=== PATIENT | female | born 1965 | race Caucasian/White ===

== ENCOUNTER 2024-09-10 20:13 | Inpatient (IN) | payer OTHER, SELFPAY ==
[2024-09-10] VITALS (8 sets, daily range): BP systolic 123–167; BP diastolic 72–95; BMI 32.0; BMI 31.4
[2024-09-10 12:00] LABS: Hematocrit 38.3 % (37.0-47.0); Hemoglobin 13.6 g/dL (12.0-16.0); Mean Corp Hgb Conc. 35.5 g/dL (33.0-37.0); Mean Corpuscular Volume 81.7 fL (81.0-99.0); Mean Platelet Volume 9.8 fL (7.4-10.4); Platelet Count 272 10^3/uL (130-400); Red Blood Cell Count 4.69 10^6/uL (4.20-5.40); Red Cell Dist. Width 15.5 % (11.5-14.5)
[2024-09-10 12:12] LABS: ALT (SGPT) 13 U/L (0-35); AST (SGOT) 14 U/L (14-36); Albumin 4.4 g/dl (3.5-5.0); Alkaline Phosphatase 115 U/L (38-126); Blood Urea Nitrogen 35 mg/dl (7-17); Calcium 9.7 mg/dl (8.4-10.2); Carbon Dioxide 21 mmol/L (22-30); Chloride 102 mmol/L (98-107); Glucose 205 mg/dl (70-99); Sodium 137 mmol/L (135-145); Total Bilirubin 0.8 mg/dl (0.2-1.3); Total Protein 7.4 g/dl (6.3-8.2); eGFR 51.82
[2024-09-10 12:15] LABS: COVID-19 Antigen Negative (Negative)
[2024-09-10 12:16] LABS: Troponin I < 0.012 ng/ml
[2024-09-10 12:42] LABS: % Basophils 0.3 % (0-2); % Immature Granulocytes 1.4 % (0-0.5); % Lymphocytes 3.9 % (20.5-51.1); % Monocytes 3.6 % (1.7-9.3); % Neutrophils 90.8 % (42.2-75.2); Absolute Basophils 0.1 10^3/uL (0-0.2); Absolute Immature Granulocytes 0.3 10^3/uL (0-0.05); Absolute Lymphocytes 0.9 10^3/uL (1.2-3.4); Absolute Monocytes 0.9 10^3/uL (0.1-0.6); Absolute Neutrophils 21.8 10^3/uL (1.4-6.5); Nucleated Red Blood Cells % 0 %
--- NOTE | 2024-09-10 15:33 | ED.GENMED ---
History of Present Illness
<Brennan Mondragon PA-C - Last Filed: 09/10/24 18:14>
General
Chief Complaint: Cough
Source: patient
Time Seen by Provider: 09/10/24 15:12
History of Present Illness
History of Present Illness:
59-year-old female with past medical history of anxiety and depression presenting to the emergency department for evaluation of cough, body aches, chest discomfort and generally feeling unwell over the last 3 days, today symptoms worse prompting her
to come to the ER for further evaluation. Patient states she has not been a eat or drink very much due to her generalized fatigue and weakness during this time. She also notes that a coworker was sick with similar symptoms the day prior to
patient's symptoms starting. Patient states she does believe she has had some blood-tinged sputum during this time. She does note a history of cigarette use noting about 5 to 6 cigarettes/day as well as recent travel to [place] in
[place] with her sister at the end of August. Patient is unaware of any fevers. No other concerns at this time.
Past History
<Brennan Mondragon PA-C - Last Filed: 09/10/24 18:14>
Past History
ED Past Medical History: Psychiatric
ED Past Surgical History: None
Social History
Tobacco: Smoker
Alcohol: None
Drug: None
Personal: Single
Living: alone
Employment: Employed
Review of Systems
<Brennan Mondragon PA-C - Last Filed: 09/10/24 18:14>
Review of Systems
All Other Systems: ROS reviewed and negative except as documented in HPI and ROS
Phy Exam
<Brennan Mondragon PA-C - Last Filed: 09/10/24 18:14>
Physical Exam
Physical Exam:
GENERAL: Alert , in no apparent distress, ill-appearing but nontoxic
HEAD: Normocephalic atraumatic
EYE: pupils equal and reactive
NECK: Supple
ENT: o/p clr, mmm.
CARDIAC: Tachycardic rate and rhythm, no murmur
LUNGS: Diminished lung sounds at the left posterior base, no acute respiratory distress, no wheezes/rales/rhonchi, pulse ox 92% on room air, placed on 2 L nasal cannula with good response to 95 to 97%
ABDOMEN: Soft, without focal tenderness, no r/g, no cvat
NEUROLOGICAL: Alert and oriented
SKIN: Warm and dry, skin intact.
MUSCULOSKELETAL: No edema, well perfused.
PSYCH: Normal and appropriate interaction.
Scores
<Brennan Mondragon PA-C - Last Filed: 09/10/24 18:14>
Heart Failure Risk
Heart Failure Risk Score: Not Applicable
Heart Score for Chest Pain Patients
STEMI patient?: No
History: Slightly or Non-Suspicious
ECG: Normal
Age: >45 - <65 years
Risk Factors: 1 or 2 Risk Factors
Troponin: </= Normal Limit
Heart Score for Chest Pain Patients: 2
Heart Score Risk: 2.5% MACE over next 6 weeks
Withdrawal Assessment of Alcohol
Withdrawal Assessment Completed?: Not applicable
<Conrad Willson MD - Last Filed: 09/10/24 15:50>
Heart Score for Chest Pain Patients
Heart Score for Chest Pain Patients: 2
Heart Score Risk: 2.5% MACE over next 6 weeks
Course
<Brennan Mondragon PA-C - Last Filed: 09/10/24 18:14>
Orders/Labs/Results
Orders:
Orders
09/10/24 11:17
Electrocardiogram (*1) Urgent
Reason for Study: Chest Pain
EKG- Treatment ONCE
09/10/24 11:36
COVID-19 Antigen Urgent
Source: Nasal Swab
Complete Blood Count/With Diff Urgent
Comprehensive Metabolic Panel Urgent
Troponin I Urgent
Influenza A+B Rapid Molecular Urgent
TREVER Source: Nasal Swab
Specimen Description:
09/10/24 15:32
CT Chest PE Study Urgent
Comment:
Reason For Exam: cough, SOB, blood tinged sputum, smoker
CefTRIAXone [Rocephin] 1,000 mg IV NOW STA
Doxycycline [Vibramycin] 100 mg PO NOW STA
09/10/24 15:39
CR Chest - 2 Views Urgent
Comment:
Reason For Exam: suspected Left pneumonia
09/10/24 16:19
0.9% Sodium Chloride 1000 ml [Nss] 1,000 ml IV BOLUS
09/10/24 17:33
Oxycodone/Acetaminophen [Percocet 5/325] 1 tablet PO NOW STA
Abnormal Lab Results
09/10/24
11:36
WBC 24.0 H 10^3/uL
(4.8-10.8)
RDW 15.5 H %
(11.5-14.5)
Abs Immat Gran (auto) 0.3 H 10^3/uL
(0-0.05)
Absolute Neuts (auto) 21.8 H 10^3/uL
(1.4-6.5)
Absolute Lymphs (auto) 0.9 L 10^3/uL
(1.2-3.4)
Absolute Monos (auto) 0.9 H 10^3/uL
(0.1-0.6)
Immature Gran % 1.4 H %
(0-0.5)
Neutrophils % 90.8 H %
(42.2-75.2)
Lymphocytes % 3.9 L %
(20.5-51.1)
Carbon Dioxide 21 L mmol/L
(22-30)
BUN 35 H mg/dl
(7-17)
Creatinine 1.2 H mg/dL
(0.6-1.0)
Glucose 205 H mg/dl
(70-99)
09/10/24 11:36
09/10/24 11:36
Vital Signs
Initial and Last Documented VS:
Initial Vital Signs
Temp Pulse Resp BP Pulse Ox
98.4 F 124 20 159/95 96
09/10/24 11:29 09/10/24 11:29 09/10/24 11:29 09/10/24 11:29 09/10/24 11:29
Last Documented Vital Signs
Temp Pulse Resp BP Pulse Ox
98.4 F 93 20 137/84 97
09/10/24 11:29 09/10/24 18:00 09/10/24 11:29 09/10/24 18:00 09/10/24 18:00
<Conrad Willson MD - Last Filed: 09/10/24 15:50>
Orders/Labs/Results
Orders:
Orders
09/10/24 11:17
Electrocardiogram (*1) Urgent
Reason for Study: Chest Pain
EKG- Treatment ONCE
09/10/24 11:36
COVID-19 Antigen Urgent
Source: Nasal Swab
Complete Blood Count/With Diff Urgent
Comprehensive Metabolic Panel Urgent
Troponin I Urgent
Influenza A+B Rapid Molecular Urgent
TREVER Source: Nasal Swab
Specimen Description:
09/10/24 15:32
CT Chest PE Study Urgent
Comment:
Reason For Exam: cough, SOB, blood tinged sputum, smoker
CefTRIAXone [Rocephin] 1,000 mg IV NOW STA
Doxycycline [Vibramycin] 100 mg PO NOW STA
09/10/24 15:39
CR Chest - 2 Views Urgent
Comment:
Reason For Exam: suspected Left pneumonia
09/10/24 16:19
0.9% Sodium Chloride 1000 ml [Nss] 1,000 ml IV BOLUS
09/10/24 17:33
Oxycodone/Acetaminophen [Percocet 5/325] 1 tablet PO NOW STA
Abnormal Lab Results
09/10/24
11:36
WBC 24.0 H 10^3/uL
(4.8-10.8)
RDW 15.5 H %
(11.5-14.5)
Abs Immat Gran (auto) 0.3 H 10^3/uL
(0-0.05)
Absolute Neuts (auto) 21.8 H 10^3/uL
(1.4-6.5)
Absolute Lymphs (auto) 0.9 L 10^3/uL
(1.2-3.4)
Absolute Monos (auto) 0.9 H 10^3/uL
(0.1-0.6)
Immature Gran % 1.4 H %
(0-0.5)
Neutrophils % 90.8 H %
(42.2-75.2)
Lymphocytes % 3.9 L %
(20.5-51.1)
Carbon Dioxide 21 L mmol/L
(22-30)
BUN 35 H mg/dl
(7-17)
Creatinine 1.2 H mg/dL
(0.6-1.0)
Glucose 205 H mg/dl
(70-99)
09/10/24 11:36
09/10/24 11:36
Vital Signs
Initial and Last Documented VS:
Initial Vital Signs
Temp Pulse Resp BP Pulse Ox
98.4 F 124 20 159/95 96
09/10/24 11:29 09/10/24 11:29 09/10/24 11:29 09/10/24 11:29 09/10/24 11:29
Last Documented Vital Signs
Temp Pulse Resp BP Pulse Ox
98.4 F 93 20 137/84 97
09/10/24 11:29 09/10/24 18:00 09/10/24 11:29 09/10/24 18:00 09/10/24 18:00
<Brennan Mondragon PA-C - Last Filed: 09/10/24 18:14>
MDM/Problems Addressed
Differential Diagnosis Includes:
Pneumonia, bronchitis, COVID, flu, pulm embolism, dehydration
MDM/Problems Addressed:
59-year-old female presenting to the emergency department for evaluation of cough, left-sided chest discomfort., Shortness of breath, and sputum and generalized fatigue all over the last 3 days. She does note a sick contact with similar symptoms 1
day prior to her symptoms starting. Patient with risk factors for PE including recent travel as well as tobacco use. Workup was initiated in triage which reveals a leukocytosis of 24,000 as well as mild KALEN. Troponin and EKG unremarkable. Doubt
cardiac cause of symptoms. CTA of the chest ordered to rule out PE. Rocephin and doxycycline ordered for suspected pneumonia. Plan for admission
<Brennan Mondragon PA-C - Last Filed: 09/10/24 18:14>
*Radiology
Radiology exam reviewed: preliminary read by ED provider (Significant left lower to mid lung pneumonia)
*Pulse Oximetry
Patient hypoxic: yes
*EKG
Interpreted by ED Provider?: Yes
Heart Rate: 122
Rate: tachycardiac
Rhythm: sinus
[place]: normal axis
Ischemia: no ischemia
*Product Applications Engineer Interpretation
Rate: tachycardiac
Rhythm: sinus
*Critical Care Note
Total Time (30-74mins, 75-104mins- exclusive of procedures): Not Applicable
<Brennan Mondragon PA-C - Last Filed: 09/10/24 18:14>
Patient Management
Discussion with other providers: Hospitalist
Escalation/DeEscalation of care consider admission/obs:
Patient's chest x-ray shows a large left lung pneumonia. Given her hypoxia, chest x-ray findings, significant leukocytosis will admit patient for IV antibiotics and supportive care with oxygen. Will still obtain CTA to rule out any other causes
for her symptoms however I do suspect pneumonia is the most likely. Hospitalist team is aware and accepts for continued evaluation and treatment
ED Attending Note
<Brennan Mondragon PA-C - Last Filed: 09/10/24 18:14>
-
Portions of this chart may have been created with voice recognition software.� Occasional wrong word or��sound alike� substitutions may have occurred due to the inherent limitations of voice recognition software.
<Conrad Willson MD - Last Filed: 09/10/24 15:50>
ED Attending Note
Patient seen and examined by attending physician: Yes
ED Attending Note:
I have seen and evaluated the patient with a [id number] encounter. I have spoken to the advance practicer provider and involved in the medical history, the physical exam, medical decision making.
Evaluation and management service: agree unless noted differently below.
Results interpretation: agree unless noted differently below.
Focused HPI: 59-year-old female with history as noted presents to the ER for evaluation of cough and shortness of breath, chest pain. Patient reports symptoms started Thursday night have been constant since that time. She reports left-sided chest
pain radiates towards the back. Associated with hacking cough productive of yellow sputum. She reports increased shortness of breath. Unsure of fever but has had headache. No swelling in the legs.
Physical exam: Awake alert not in distress. Hypertensive, tachycardic, hypoxic requiring 2 L nasal cannula. She has rales at the left lung base. No cardiac rubs gallops or murmurs. No edema noted in the legs
Medical Decision Making:. 59-year-old female presents for cough, chest pain, shortness of breath. Vitals and exam as above. CBC shows leukocytosis to 24 with predominant neutrophils. CMP shows renal insufficiency with a creatinine of 1.2 unclear
baseline. Troponin is undetectable, EKG shows sinus rhythm. COVID and flu negative. Chest x-ray shows left lower lobe pneumonia, left pleural. Cover with antibiotics. Using CT for better visualization of lung and to rule out PE. Admit for
continued treatment.
Discharge Plan
Departure
Patient Disposition: Admit
Date of Disposition: 09/10/24
Time of Disposition: 17:41
Presentation/result/management discussed w/ accepting MD/DO: Hospitalist
Discharge Problem:
Pneumonia, Hypoxia
Referrals:
Maryanne Bailey [Other]
Maryanne Boston DO [Family Provider] -
Interventions
Interventions:
*Risk Screen - Suicide Last Done: 09/10/24 11:29
*General Assessment Last Done: 09/10/24 15:43
*Neglect/Abuse Screening Last Done: 09/10/24 11:29
*ED- Fall Risk Assessment Last Done: 09/10/24 15:43
*ED COVID-19 Vaccine History Last Done: 09/10/24 15:43
ED- Pulmonary Assessment Last Done: 09/10/24 15:47
Discharge Date and Time
Print Language: CITIZEN OF [place]
[2024-09-10] MEDS: ROCEPHIN 1000 MG IV (15:46)
[2024-09-10] MEDS: VIBRAMYCIN 100 MG PO (15:46)
[2024-09-10] MEDS: NSS 1000 IV ×2 (16:20→22:04)
[2024-09-10] MEDS: PERCOCET 5/325 1 TABLET PO (17:49)
--- NOTE | 2024-09-10 18:50 | HPS.HSE ---
Family Physician
-
Family Physician: Maryanne Boston, DO
Chief Complaint
-
Cough
History of Present Illness
The patient is a 59-year-old woman with past medical history significant for anxiety depression who presents emergency department secondary to worsening cough associated with myalgias and chest discomfort. She has been feeling unwell for the past
few days and today her symptoms worsened prompting her to come to the emergency department for further evaluation. She has been having anorexia for the past few days associated with generalized fatigue and weakness. Of note she has been exposed to
a coworker has been sick with similar symptoms. She also was concerned about possible blood-tinged sputum during that time. She smokes 5 to 6 cigarettes/day. She has no other pulmonary history. She recently travel to [facility] in [place]
at the end of August. She denies fevers no chills. No abdominal complaints no dysuria, no syncope,no headaches. She was tachycardic at 125 on arrival. Respiratory rate 20 oxygen 92% on room air. She was placed on 2 L oxygen and her oxygen
saturation 95 to 97%. WBC 24.0 creatinine 1.2 BUN 35 CO2 21 glucose 205
ED treatment IV Rocephin, oral doxycycline, IV fluids 1 L bolus, Percocet x 1
Medical History
Past Medical History
Past Medical History: Reports Psychiatric (anxiety, depression)
Past Surgical History: Reports None
Social History
Tobacco: Smoker
Alcohol: None
Drug: None
Personal: Single
Living: Alone
Employment: Employed
Family History
Family History: Not pertinent
Allergies / Home Medications
Allergies reflects when Allergies were last updated in [employer].
Home Medications with original date entered in [employer]
Allergy/Medication List:
Allergies
Allergy/AdvReac Type Severity Reaction Status Date / Time
No Known Allergies Allergy Verified 09/10/24 11:29
Review of Systems
-
A 12 point ROS was completed and negative except as noted: Yes
Physical Exam
Vital Signs
Vital Signs
Temp Pulse Resp BP Pulse Ox
98.4 F 93 20 137/84 97
09/10/24 11:29 09/10/24 18:00 09/10/24 11:29 09/10/24 18:00 09/10/24 18:00
Physical Exam
General: Well Developed, Well Nourished and Conversant
HEENT: NormoCephalic, Anicteric and Moist mucous membranes
Respiratory: Wheezes (left lung field) and Rhonchi (left lung field)
Cardiac: S1/S2 and Regular Rhythm
GI: Soft, Non Tender and Non Distended
Musculoskeletal: No Clubbing, No Cyanosis and No Edema
Skin: Warm and Dry
Neuro: AO x 3, No Motor Deficits and Nonfocal/grossly intact
Psych: Calm
Laboratory Results
-
09/10/24 11:36
09/10/24 11:36
Laboratory Results
Total Bilirubin 0.8 mg/dl (0.2-1.3) 09/10/24 11:36
AST 14 U/L (14-36) 09/10/24 11:36
ALT 13 U/L (0-35) 09/10/24 11:36
Alkaline Phosphatase 115 U/L (38-126) 09/10/24 11:36
Troponin I < 0.012 ng/ml 09/10/24 11:36
Data Reviewed
-
Diagnostic Radiology: Image Personally Visualized and interpreted and Report Reviewed by me
Impression/Plan
-
IMPRESSION:The patient is a 59-year-old woman with past medical history significant for anxiety depression who presents emergency department secondary to worsening cough associated with myalgias and chest discomfort. She has been feeling unwell for
the past few days and today her symptoms worsened prompting her to come to the emergency department for further evaluation. She has been having anorexia for the past few days associated with generalized fatigue and weakness. Of note she has been
exposed to a coworker has been sick with similar symptoms. She also was concerned about possible blood-tinged sputum during that time. She smokes 5 to 6 cigarettes/day. She has no other pulmonary history. She recently travel to [facility]
in [place] at the end of August. She denies fevers no chills. No abdominal complaints no dysuria, no syncope,no headaches. She was tachycardic at 125 on arrival. Respiratory rate 20 oxygen 92% on room air. She was placed on 2 L oxygen and her
oxygen saturation 95 to 97%. WBC 24.0 creatinine 1.2 BUN 35 CO2 21 glucose 205 (she had a sugar energy drink prior to arrival)
ED treatment IV Rocephin, oral doxycycline, IV fluids 1 L bolus, Percocet x 1
# Community-acquired pneumonia, severe left mid to lower lung zone airspace disease on chest x-ray, likely gram-negative bacteria
-Continue IV antibiotics IV Rocephin and IV azithromycin
-Strep and Legionella urinary antigen
-Oxygen per nasal cannula and wean per protocol, patient is not on home oxygen and is requiring 2 L to keep oxygen greater than 90%
# Tobacco use, discussed cessation.
-Scheduled DuoNebs
# hyperglycemia, possible new diagnosis of diabetes
-The patient drank of sugar energy drink prior to lab draw and this may have caused the sugars to be elevated
-Repeat BMP and glucose in the morning, post IV fluids, check hemoglobin A1c
# Acute kidney injury creatinine is 1.2, unknown baseline
-Continue IV fluids
-Repeat BMP in the morning
#Depression
-SSRI, continue
DVT proph-Lovenox
Full Code
[2024-09-10] MEDS: DUONEB 3 ML INH (21:21)
--- NOTE | 2024-09-10 21:24 | PTCARENOTE ---
Pt arrived from ED via stretcher and ambulated to bed. Pt is AAOx3, VSS sating 96 % on 3L, and complains of 8/10 L sided chest and L flank pain. RN given Motrin. Pt is oriented to unit, with call thornton within reach.
[2024-09-10] MEDS: MOTRIN 600 MG PO (22:04)
[2024-09-10] MEDS: ZITHROMAX INFUSION 250 IV (22:05)
[2024-09-11] MEDS: PERCOCET 5/325 1 TABLET PO ×3 (01:14→09:43)
[2024-09-11 06:09] LABS: % Basophils 0.2 % (0-2); % Eosinophils 0.4 % (0-6); % Immature Granulocytes 1.2 % (0-0.5); % Lymphocytes 12.2 % (20.5-51.1); Absolute Eosinophils 0.1 10^3/uL (0-0.7); Absolute Immature Granulocytes 0.2 10^3/uL (0-0.05); Absolute Monocytes 0.8 10^3/uL (0.1-0.6); Absolute Neutrophils 13.3 10^3/uL (1.4-6.5); Hematocrit 33.9 % (37.0-47.0); Hemoglobin 11.4 g/dL (12.0-16.0); Mean Corp Hgb Conc. 33.6 g/dL (33.0-37.0); Mean Corpuscular Hgb 28.4 pg (27.0-31.0); Mean Corpuscular Volume 84.3 fL (81.0-99.0); Mean Platelet Volume 10.1 fL (7.4-10.4); Nucleated Red Blood Cells % 0 %; Platelet Count 231 10^3/uL (130-400); Red Blood Cell Count 4.02 10^6/uL (4.20-5.40); Red Cell Dist. Width 15.6 % (11.5-14.5); White Blood Cell Count 16.4 10^3/uL (4.8-10.8)
[2024-09-11] MEDS: NSS 1000 IV (06:16)
[2024-09-11 06:44] LABS: Blood Urea Nitrogen 33 mg/dl (7-17); Calcium 8.8 mg/dl (8.4-10.2); Carbon Dioxide 24 mmol/L (22-30); Chloride 107 mmol/L (98-107); Estimated Creatinine Clearance 57 ml/min; Glucose 84 mg/dl (70-99); Potassium 4.2 mmol/L (3.5-5.1); Sodium 142 mmol/L (135-145); eGFR 57.52
[2024-09-11 07:00] VITALS: BP 117/54
[2024-09-11] MEDS: DUONEB 3 ML INH ×4 (07:28→19:18)
[2024-09-11] MEDS: ZOLOFT 50 MG PO (08:25)
[2024-09-11 12:19] VITALS: BP 133/84; PULSE 83; O2SAT 93
--- NOTE | 2024-09-11 12:37 | W.PN.HOSP.TC ---
Today's Communication/Plan
-
Continue IV antibiotics for now
Increase analgesics for pleuritic pain
Continue maintenance IVF
Monitor on RA
Assessment / Plan
Assessment / Plan
#Community-acquired pneumonia
#Pleuritic chest pain
-Presented with dyspnea, hypoxemia, WBC 24, cough; CXR with left lower lung field consolidation
-Viral respiratory panel negative for flu and COVID; no blood or sputum cultures obtained
-Initially was on 2 L of oxygen however as of this morning was on room air without hypoxia
-Urine Legionella antigen and streptococcal antigens were negative
-Continue IV ceftriaxone and azithromycin for now, trend CBC and temperature curve
-Continue with Percocet as needed for pleuritic pain, increased dose today
#Elevated creatinine
-Prerenal KALEN secondary to sepsis versus stable chronic kidney disease
-Creatinine 1.2, no previous labs to compare to
-Received IV fluids, creatinine down to 1.1 as of today
-Continue to trend BMP and avoid unnecessary nephrotoxins
#Tobacco use
-Encourage cessation
-As needed DuoNebs if signs of bronchospasm
#Anxiety/depression
-Continued on home sertraline
DVT prophylaxis: Lovenox
Diet: Regular
CODE STATUS: Full code
Anticipated Discharge: 24 - 48 hours
Subjective/Interval History
-
Date of Service: September 11, 2024
Seen and examined at the bedside. No acute events reported overnight. AFVSS on room air this morning
Patient complains of ongoing pleuritic pain, left ribs/lower lung zacarias. Denies any dyspnea or squeezing chest tightness
Denies any new complaints as of this morning
Objective Data
-
Labs:
Laboratory Results
09/11/24
05:00
WBC 16.4 H
Hgb 11.4 L
Hct 33.9 L
Plt Count 231
Sodium 142
Potassium 4.2
Chloride 107
Carbon Dioxide 24
BUN 33 H
Creatinine 1.1 H
Glucose 84
Calcium 8.8
Vital Signs:
Vital Signs
Temp Pulse Resp BP Pulse Ox
98.2 F 62 18 117/54 93
09/11/24 07:00 09/11/24 11:20 09/11/24 11:20 09/11/24 07:00 09/11/24 11:20
I&O
09/10/24 09/11/24 09/12/24
06:59 06:59 06:59
Intake Total 240 / 240
Balance 240 / 240
Review of Systems
-
History Source: Patient
All other systems: Reviewed and negative
Physical Exam
-
General: Well Developed, No Apparent Distress and Obese
HEENT: Normocephalic, Atraumatic and Moist Mucous Membranes
Respiratory: Non Labored Respirations and Decreased Breath Sounds (Left base); Negative Wheezes, Rales, Rhonchi or Accessory Resp Muscle Use
Cardiac: Regular Rhythm and S1/S2; Negative Murmur, Rub or Gallop
GI: Soft, Nontender, Nondistended, Normal Bowel Sounds and No Hepatosplenomegaly
Musculoskeletal: No Clubbing, No Cyanosis and No Edema
Skin: Warm, Dry and Normal Turgor; Negative Rash
Neuro: AO x 3 and Nonfocal/Grossly Intact; Negative Tremors
Psych: Calm
Data Reviewed
-
Labs: Labs Reviewed by me and Discussed with Patient
[2024-09-11] MEDS: PERCOCET 5/325 2 TABLET PO ×2 (13:35→19:09)
[2024-09-11 15:42] VITALS: BP 125/54
[2024-09-11] MEDS: ROCEPHIN 1000 MG IV (16:13)
[2024-09-11] MEDS: STERILE WATER FOR INJECTION 10 ML IV (16:13)
[2024-09-11] MEDS: LOVENOX 40 MG SC (16:15)
--- NOTE | 2024-09-11 16:25 | PTCARENOTE ---
Assumed care of patient at 3pm. No noted changes in assessment.
[2024-09-11] MEDS: FLUSH (NSS) 1 FLUSH IV (21:18)
[2024-09-11] MEDS: ZITHROMAX INFUSION 250 IV (21:18)
[2024-09-11] MEDS: MOTRIN 600 MG PO (22:06)
[2024-09-11 23:36] VITALS: BP 137/76
[2024-09-12] MEDS: DUONEB 3 ML INH ×4 (07:26→19:52)
[2024-09-12 07:35] VITALS: BP 134/81
[2024-09-12] MEDS: PERCOCET 5/325 2 TABLET PO ×2 (07:35→17:01)
[2024-09-12] MEDS: ZOLOFT 50 MG PO (07:57)
[2024-09-12 08:21] LABS: % Basophils 0.3 % (0-2); % Eosinophils 1.8 % (0-6); % Immature Granulocytes 0.9 % (0-0.5); % Lymphocytes 18.2 % (20.5-51.1); % Monocytes 10.8 % (1.7-9.3); Absolute Eosinophils 0.2 10^3/uL (0-0.7); Absolute Immature Granulocytes 0.1 10^3/uL (0-0.05); Absolute Lymphocytes 1.7 10^3/uL (1.2-3.4); Absolute Neutrophils 6.3 10^3/uL (1.4-6.5); Hematocrit 31.5 % (37.0-47.0); Mean Corp Hgb Conc. 34.9 g/dL (33.0-37.0); Mean Corpuscular Hgb 29.1 pg (27.0-31.0); Mean Corpuscular Volume 83.3 fL (81.0-99.0); Mean Platelet Volume 9.9 fL (7.4-10.4); Nucleated Red Blood Cells % 0 %; Platelet Count 251 10^3/uL (130-400); Red Blood Cell Count 3.78 10^6/uL (4.20-5.40); Red Cell Dist. Width 15.7 % (11.5-14.5); White Blood Cell Count 9.3 10^3/uL (4.8-10.8)
[2024-09-12 09:04] LABS: Blood Urea Nitrogen 27 mg/dl (7-17); Calcium 9.1 mg/dl (8.4-10.2); Carbon Dioxide 23 mmol/L (22-30); Chloride 107 mmol/L (98-107); Estimated Creatinine Clearance 57 ml/min; Glucose 86 mg/dl (70-99); Potassium 4.3 mmol/L (3.5-5.1); Sodium 140 mmol/L (135-145); eGFR 57.52
--- NOTE | 2024-09-12 09:08 | W.PN.HOSP.TC ---
Today's Communication/Plan
-
Antibiotics
Assessment / Plan
Assessment / Plan
Physical exam:
General: Well Developed, Well Nourished and No Apparent Distress
HEENT: Normocephalic, Atraumatic and Moist Mucous Membranes
Respiratory: Clear to Auscultation; Negative Wheezes, Rales or Rhonchi
Cardiac: Regular Rhythm and S1/S2
GI: Soft, Nontender and Nondistended
Musculoskeletal: No Clubbing, No Cyanosis and No Edema
Neuro: Awake, Alert and Oriented
Psych: Calm
A/P:
Community-acquired pneumonia:
Continue IV antibiotics and probably switch to oral tomorrow
Pain control
Bronchodilators as needed
White blood cell count 24--> 9.3
CKD:
Avoid nephrotoxic
Monitor renal function with outpatient
Depression:
Continue antidepressant
Smoker:
Advised cessation
DVT prophylaxis:
Lovenox SQ
CODE STATUS:
Full code
Anticipated Discharge: Within 24 hours
Subjective/Interval History
-
Date of Service: September 12, 2024
Patient feels better overall although still have some pleuritic chest discomfort. Afebrile
Objective Data
-
Labs:
Laboratory Results
09/12/24
06:05
WBC 9.3
Hgb 11.0 L
Hct 31.5 L
Plt Count 251
Sodium 140
Potassium 4.3
Chloride 107
Carbon Dioxide 23
BUN 27 H
Creatinine 1.1 H
Glucose 86
Calcium 9.1
Vital Signs:
Vital Signs
Temp Pulse Resp BP Pulse Ox
97.6 F 74 16 134/81 100
09/12/24 07:35 09/12/24 07:35 09/12/24 07:35 09/12/24 07:35 09/12/24 07:35
I&O
09/11/24 09/12/24 09/13/24
06:59 06:59 06:59
Intake Total 240 / 240
Balance 240 / 240
[2024-09-12] MEDS: ROCEPHIN 1000 MG IV (15:28)
[2024-09-12] MEDS: STERILE WATER FOR INJECTION 10 ML IV (15:28)
[2024-09-12 15:40] VITALS: BP 152/84
[2024-09-12] MEDS: LOVENOX 40 MG SC (17:00)
[2024-09-12] MEDS: ZITHROMAX INFUSION 250 IV (22:10)
[2024-09-12 23:30] VITALS: BP 148/80
[2024-09-13] MEDS: PERCOCET 5/325 2 TABLET PO (05:30)
[2024-09-13] MEDS: DUONEB 3 ML INH (07:17)
[2024-09-13] MEDS: ZOLOFT 50 MG PO (08:17)
[2024-09-13 08:23] VITALS: BP 151/84
--- NOTE | 2024-09-13 08:39 | W.PN.HOSP.TC ---
Addendum entered and electronically signed by Edwardo Shabazz MD 09/14/24 15:48:
Sepsis, poa
Addendum entered and electronically signed by Edwardo Shabazz MD 09/13/24 17:29:
pte feels ready to home after initiation of iv steroids- will switch to po in am and plan d/c today.
Addendum entered and electronically signed by Edwardo Shabazz MD 09/13/24 15:47:
CKD, stage 3A
Original Note:
Today's Communication/Plan
-
IV steroids. Oral antibiotics
Assessment / Plan
Assessment / Plan
Physical exam:
General: Well Developed, Well Nourished and No Apparent Distress
HEENT: Normocephalic, Atraumatic and Moist Mucous Membranes
Respiratory: No crackles; No Rales. B/L Rhonchi and scattered Wheezes today
Cardiac: Regular Rhythm and S1/S2
GI: Soft, Nontender and Nondistended
Musculoskeletal: No Clubbing, No Cyanosis and No Edema
Neuro: Awake, Alert and Oriented, no neuro deficits
Psych: Calm
A/P:
Community-acquired pneumonia:
Continue antibiotics and switch to oral today
Pain control
Bronchodilators as needed
White blood cell count 24--> 9.3
Reactive airway disease:
Start IV dexa 4 mg Q 8 hr
Cont bronchodilators
Add Robitussin with codeine for cough
CKD:
Avoid nephrotoxic
Monitor renal function with outpatient
Depression:
Continue antidepressant
Smoker:
Advised cessation
DVT prophylaxis:
Lovenox SQ
CODE STATUS:
Full code
Anticipated Discharge: 24 - 48 hours
Subjective/Interval History
-
Date of Service: September 13, 2024
patient with more cough and cp and sob today although better than when she came in. Afebrile
Objective Data
-
Vital Signs:
Vital Signs
Temp Pulse Resp BP Pulse Ox
98 F 78 18 151/84 100
09/13/24 08:23 09/13/24 08:23 09/13/24 08:23 09/13/24 08:23 09/13/24 08:23
I&O
09/12/24 09/13/24 09/14/24
06:59 06:59 06:59
Intake Total 1200 / 1200
Balance 1200 / 1200
[2024-09-13] MEDS: OMNICEF 300 MG PO (09:18)
[2024-09-13] MEDS: DECADRON 4 MG IV ×2 (10:44→18:01)
[2024-09-13] MEDS: DUONEB INH ×2 (11:12→15:20)
--- NOTE | 2024-09-13 14:25 | CM ---
CM reviewed chart, patient seen bedside, initial assessment completed. Patient resides independently in a multiple story home, 12 steps to enter. Patient denies use of DME, VN/SNF history. Patient confirms PCP Maryanne Boston, interested in a list of
local PCPS, will provide. Patient confirms pharmacy [facility], confirms prescription coverage. Patient remains on IV steroids, oral antibiotics. CM will continue to follow for all discharge planning needs.
Plan; home no needs likely.
--- NOTE | 2024-09-13 15:32 | PN.CDI ---
CDI
- -
CDI:
Physician Documentation Request
Admit Date: 09/10/24 20:13
Dear Doctor Mele
Hospitalist progress notes states 'CKD: avoid nephrotoxic, monitor renal function ...'
eGFR results:
Laboratory Tests
09/10/24 09/11/24 09/12/24
11:36 05:00 06:05
eGFR 51.82 57.52 57.52
Please clarify which of the following likely represents the patient's CKD stage
Stages of Chronic Kidney Disease*
Level Description GFR
G1 Normal or High >90
G2 Mildly decreased 60-89
G3a Mildly to moderately decreased 45-59
G3b Moderately to severely decreased 30-44
G4 Severely decreased 15-29
G5 Kidney failure <15
Use of terms such as suspected, likely, concern for, or probable (associated with a specific diagnosis that is being evaluated, monitored, or treated as if it exists) are acceptable and can be coded in the inpatient setting, when documented at the
time of discharge.
Thank you,
Hillary Villavicencio RN, BSN
CDI Specialist
tiger text
Please use your independent medical judgment in providing your response.
*Source: Kidney Disease: Improving Global Outcomes (KDIGO) 2012
[2024-09-13 15:46] VITALS: BP 143/78
--- NOTE | 2024-09-13 17:28 | W.DCSUMMARY ---
Addendum entered and electronically signed by Edwardo Shabazz MD 09/14/24 15:48:
sepsis, poa-resolved
Original Note:
Discharge Summary
Discharge Data
Date of Admission: 09/10/24
Date of Discharge: 09/13/24
-
Pending Results: No
Hospital Course
Patient is 59 years old female with history of depression anxiety, smoker, came into the hospital cough shortness of breath and chest pain. Patient was found to have severe left lung pneumonia. There was no evidence of PE on CTA. She was started
on broad-spectrum IV antibiotics. Her white blood cell count was as high as 24,000 and it came back down to normal 9000. Patient did well rest of hospital stay but she did have some reactive airway disease so she was also started on steroid and
she responded well. She will finish an outpatient oral antibiotic course and also an oral course of tapering steroids as outpatient. Patient is hemodynamically stable, afebrile, and feels much back to her baseline and is eager to go home today.
She will be discharged in stable condition today.
Discharge duration: 35 minutes
Discharge Plan
-
Patient Disposition: Home (Routine Discharge)
Discharge Diagnosis/Procedures: Community-acquired pneumonia
Reactive airway disease
Pleuritic chest pain
Tobacco use
chronic kidney disease
Prediabetes
Condition: Good
Diet: Diabetic, Carb Controlled
Additional Diets: See dietary handout below
Activity: As tolerated
Additional Activity: 30 minutes aerobic exercise daily as tolerated
Driving Restrictions: As prior to admission
Bathing Restrictions: None
Blood Work: BMP and CBC 1 week after discharge
Others Tests: None
Activity Restrictions/Additional Instructions:
After discharge from the hospital you should schedule up with your family doctor. You should be seen in the office within 1 to 2 weeks of discharge
Instructions: Community-acquired pneumonia in adults, Diet and health, Diabetes and diet
Referrals:
Maryanne Boston, DO [Family Provider] - in less than 1 week
Prescriptions:
New
prednisone 10 mg Tablet
See Rx Instructions .ROUTE .COMPLEX Qty: 30 0RF
Rx Instructions:
Take By Mouth:
40 mg daily x3 days, 30 mg daily x3 days,
20 mg daily x3 days, 10 mg daily x3 days.
azithromycin 500 mg tablet
500 mg PO DAILY 2 Days Qty: 2 0RF
cefdinir 300 mg Capsule
300 mg PO Q12 5 Days Qty: 10 0RF
albuterol sulfate 90 mcg/actuation HFA aerosol inhaler
2 puff inhalation Q6H PRN (Reason: shortness of breath or wheezing) Qty: 6.7 0RF
dextromethorphan-guaifenesin [Robitussin Honey Max DM] 5-100 mg/5 mL liquid
10 ml PO Q6H PRN (Reason: Cough) Qty: 1000 0RF
Continued
sertraline 50 mg Tablet
50 mg PO DAILY
Discontinued
ibuprofen 200 mg Tablet
600 mg PO DAILYPRN PRN (Reason: mild pain)
Ibuprofen PM 200-38 mg Tablet
2 cap PO DAILYPRN PRN (Reason: mild pain)
Discharge Orders:
Discharge Patient (As Directed); Ordered 09/13/24
Ordered By: Edwardo Shabazz
Discharge Date and Time
Discharge Date/Time: 09/13/24 18:38
Print Language: BENGALI
[2024-09-13] MEDS: LOVENOX SC (17:54)
--- NOTE | 2024-09-14 10:33 | PN.CDI ---
CDI
- -
CDI:
Physician Documentation Request
Admit Date: 09/10/24 20:13
Dear Doctor Mele,
Patient is admitted for management of community acquired pneumonia.
Patient has remained afebrile
Presenting heart rate 124-113, respiratory rate 20
4/5 WBC 24.0
Please clarify which of the following most accurately describes the status of the patient's infection:
Sepsis
- Systemic manifestations of infection, with 2 or more SIRS criteria which include:
- Fever >100.4 degrees F or hypothermia < 96.8 degrees F
- Leukocytosis - WBC > 12,000 or leukopenia - WBC < 4,000 or > 10% bands
- Tachycardia > 90 beats per minute
- Tachypnea - RR > 20 breaths per minute or PaCO2 , 32mmHg
Source: [employer] Manual 2013
Localized Infection Only, Without Systemic Illness
Other
Use of terms such as suspected, likely, concern for, or probable (associated with a specific diagnosis that is being evaluated, monitored, or treated as if it exists) are acceptable and can be coded in the inpatient setting, when documented at the
time of discharge.
Thank you,
Hillary Villavicencio RN, BSN
CDI Specialist
tiger text
Please use your independent medical judgment in providing your response.
== END 2024-09-13 18:38 | disposition home or self-care (01) | DRG 871 ==
LOC: 4 EAST ACU 20:13
PROVIDERS: Emergency Medicine; Internal Medicine; ADMITTING PHYSICIAN Internal Medicine; ATTENDING PHYSICIAN Hospitalist; EMERGENCY PHYSICIAN Emergency Medicine; FAMILY PHYSICIAN Family Medicine
DX: A41.9 Sepsis, unspecified organism (principal); J18.9 Pneumonia, unspecified organism; N17.9 Acute kidney failure, unspecified; N18.31 Chronic kidney disease, stage 3a; F32.A Depression, unspecified; F41.9 Anxiety disorder, unspecified; F17.210 Nicotine dependence, cigarettes, uncomplicated
CPT/HCPCS: 71046; 71275; 80048; 80053; 83036; 84484; 85025; 87070; 87205; 87449; 87502; 87811; 87899; 93005; 94640; 96361; 96374; 97162; 99285; 99406; Q9967